=== PATIENT | female | born 1995 | race Two or more races ===

== ENCOUNTER 2022-05-13 08:11 | Inpatient (IN) ==
[2022-05-13 08:25] VITALS: BMI 36.0
[2022-05-13 09:09] LABS: BILIRUBIN,URINE NEGATIVE (NEGATIVE); BLOOD/HEMOGLOBIN,URINE 3+ (NEGATIVE); GLUCOSE, URINE NEGATIVE (NEGATIVE); KETONES,URINE NEGATIVE (NEGATIVE); LEUKOCYTE ESTERASE ,URINE NEGATIVE (NEGATIVE); NITRITES,URINE NEGATIVE (NEGATIVE); PH,URINE 6.5 (5.0 - 8.0); PROTEIN,URINE NEGATIVE (NEGATIVE); UROBILINOGEN,URINE NORMAL (NORMAL)
[2022-05-13 09:18] LABS: AMNISURE ROM TEST THERE IS A RUPTURE (NO RUPTURE)
[2022-05-13 09:19] LABS: APPEARANCE,URINE CLEAR (CLEAR); BACTERIA,URINE TRACE /HPF (NEGATIVE); COLOR,URINE YELLOW (YELLOW); RBC,URINE 0-2 /HPF (0-3); SQUAMOUS EPITHELIAL CELL,UR MODERATE /HPF (NEGATIVE)
[2022-05-13 09:25] LABS: BASOPHILS % (AUTO) 0.4 % (0.2-1.0); EOSINOPHILS # (AUTO) 0.1 x10^3/uL (0.0-0.2); HEMATOCRIT 35.9 % (36.0-47.0); HEMOGLOBIN 11.9 g/dL (12.0-16.0); LYMPHOCYTES # (AUTO) 1.5 X10^3/uL (1.3-2.9); LYMPHOCYTES % (AUTO) 24.7 % (21.0-51.0); MEAN CORPUSCULAR HEMOGLOBIN 27.3 pg (27.0-34.0); MEAN CORPUSCULAR HGB CONC 33.2 g/dL (33.0-35.0); MEAN CORPUSCULAR VOLUME 82.1 fL (80.0-100.0); MONOCYTES # (AUTO) 0.3 x10^3/uL (0.3-0.8); NEUTROPHILS # (AUTO) 4.1 x10^3/uL (2.2-4.8); NEUTROPHILS % (AUTO) 68.9 % (42.0-75.0); RED BLOOD COUNT 4.37 X10^6/uL (3.5-5.4); RED CELL DISTRIBUTION WIDTH 18.3 % (11.6-16.5)
[2022-05-13 09:32] LABS: ALANINE AMINOTRANSFERASE 19 Units/L (12-78); ALBUMIN 2.7 g/dL (3.4-5.0); ALKALINE PHOSPHATASE 171 Units/L (46-116); ASPARTATE AMINO TRANSFERASE 23 Units/L (15-37); BLOOD UREA NITROGEN 4 mg/dL (7-18); CALCIUM 8.6 mg/dL (8.5-10.1); CARBON DIOXIDE 23.5 mmol/L (21-32); CHLORIDE 102 mmol/L (98-107); COR CA(FOR HYPOALB) 9.6 mg/dL (8.5-10.1); COR NA(FOR HYPERGLY) 137 mmol/L (136-145); CREATININE 0.66 mg/dL (0.55-1.02); SODIUM 136 mmol/L (136-145); TOTAL PROTEIN 6.5 g/dL (6.4-8.2); eGFR NON BLACK RACES > 60 (>60)
[2022-05-13] MEDS ORDERED: PITOCIN IVP ONE (09:33)
[2022-05-13] MEDS ORDERED: D5 LR + PITOCIN 10 UNITS/L 10 UNITS/1,000 ML BAG IV PRN ×2 (09:33→21:00)
[2022-05-13] MEDS ORDERED: PHENERGAN INJ 25 MG IM PRN (09:33)
[2022-05-13] MEDS ORDERED: REGLAN INJ 10 MG VIAL IVP PRN (09:33)
[2022-05-13] MEDS ORDERED: BETADINE SOLN ONE (09:38)
[2022-05-13] MEDS ORDERED: PITOCIN ONE (09:38)
[2022-05-13] MEDS ORDERED: D5 1/2 NS 1,000 mL + PITOCIN 20 UNITS/L IV 20 UNITS/1,000 ML BAG IV ONE (09:39)
[2022-05-13] MEDS: LR 1,000 ML IV 1,000 ML IV ONE (09:40)
[2022-05-13] MEDS ORDERED: LR 1,000 ML IV 1,000 ML IV ONE ×2 (09:55→22:56)
[2022-05-13] MEDS: D5 1/2 NS 1,000 ML 1,000 ML IV SCH ×2 (10:08→18:35)
[2022-05-13] MEDS ORDERED: STADOL INJ ONE ×3 (18:06→23:49)
[2022-05-13] MEDS: STADOL INJ IVP PRN ×2 (18:07→21:00)
[2022-05-13] MEDS ORDERED: PHENERGAN INJ 25 MG IM ONE (20:40)
[2022-05-13] MEDS ORDERED: D5 LR + PITOCIN 10 UNITS/L 10 UNITS/1,000 ML BAG IV ONE (21:05)
[2022-05-13] MEDS ORDERED: XYLOCAINE 1 % (PLAIN) ONE (21:05)
[2022-05-14] MEDS: D5 1/2 NS 1,000 ML 1,000 ML IV SCH (02:07)
[2022-05-14] MEDS ORDERED: MOTRIN TAB 800 MG PO PRN ×2 (06:06→06:52)
[2022-05-14] MEDS ORDERED: PHENERGAN INJ 25 MG IM PRN (06:06)
[2022-05-14] MEDS: D5 1/2 NS 1,000 ML 1,000 ML with PITOCIN 20 UNITS IV SCH ×6 (06:12→23:55)
[2022-05-14] MEDS ORDERED: STADOL INJ ONE (06:37)
[2022-05-14] MEDS: STADOL INJ IVP PRN ×2 (06:40)
[2022-05-14] MEDS ORDERED: DERMOPLAST PAIN RELIEF SPRAY TOP PRN (06:52)
[2022-05-14] MEDS ORDERED: AMBIEN PO PRN (06:52)
[2022-05-14] MEDS ORDERED: MILK OF MAGNESIA PO PRN (06:52)
[2022-05-14] MEDS: PRENATAL PLUS PO SCH (08:34)
[2022-05-14] MEDS: NORCO 5/325 MG TAB PO PRN (13:28)
[2022-05-15] MEDS: NORCO 5/325 MG TAB PO PRN (01:55)
[2022-05-15 04:47] LABS: HEMATOCRIT 29.2 % (36.0-47.0)
[2022-05-15 04:48] LABS: HEMOGLOBIN 9.6 g/dL (12.0-16.0)
[2022-05-15] MEDS: D5 1/2 NS 1,000 ML 1,000 ML with PITOCIN 20 UNITS IV SCH ×2 (06:00)
[2022-05-15] MEDS ORDERED: NS 100 ML IV 100 ML with VENOFER 400 MG IV NR ×2 (09:17)
[2022-05-15] MEDS: PRENATAL PLUS PO SCH (09:50)
[2022-05-15 13:55] VITALS: BP 111/61
== END 2022-05-15 14:50 | disposition home or self-care (01) | DRG 807 ==
LOC: ER 08:11 → LD 09:33 → MED/SURG 05-14 06:53
PROVIDERS: ADMIT Obstetrics & Gynecology Obstetrics; ATTEND Obstetrics & Gynecology Obstetrics
DX: O26.893 Other specified pregnancy related conditions, third trimester; Z37.0 Single live birth; O70.1 Second degree perineal laceration during delivery; Z3A.41 41 weeks gestation of pregnancy